=== PATIENT | female | born 1960 | race African-American/Black ===

== ENCOUNTER → 2016-03-18 | Outpatient (CLI) | payer MEDICARE, MEDICAID, OTHER ==
[~2016-03-18] VITALS: Ht 153.7 cm; Wt 128.8 kg
[~2016-03-18] MED LIST: CALCIUM 600MG+D1 TAB PO; CATAPRES 0.1MG0.1 MG PO; CLARITIN 1010 MG/TAB PO; FLEXERIL 1010 MG/TAB PO; FLONASE NASAL S16 GM NS; GLUCOPHAGE1000 MG PO; MULTIPLE VITAMI1 CAP PO; NORVASC 10MG10 MG PO; PRINZIDE 12.5 M1 TA1 PO; PROAIR HFA0.09 MG/AC IH
[2016-03-18 15:08] VITALS: BP 136/81; PULSE 69
[2016-03-18 15:53] VITALS: BP 136/81; PULSE 69
== END ==
LOC: LIGHT 13:58
DX: Z98.84 Bariatric surgery status (principal); E66.01 Morbid (severe) obesity due to excess calories; Z68.43 Body mass index [BMI] 50.0-59.9, adult; I10 Essential (primary) hypertension

== ENCOUNTER → 2016-08-29 | Outpatient (CLI) | payer MEDICARE, MEDICAID | LOC: COL.RAD 12:07 | DX: K57.30 Diverticulosis of large intestine without perforation or abscess without bleeding (principal); Z98.890 Other specified postprocedural states | CPT/HCPCS: Q9967 ==

== ENCOUNTER → 2017-02-04 | Outpatient (CLI) | payer MEDICARE, MEDICAID | LOC: MC.RAD 01-10 11:20 | DX: Z12.31 Encounter for screening mammogram for malignant neoplasm of breast (principal) ==

== ENCOUNTER → 2017-11-24 | Outpatient (CLI) | payer MEDICARE, MEDICAID | LOC: COL.RAD 11:48 | DX: E04.1 Nontoxic single thyroid nodule (principal) ==

== ENCOUNTER → 2017-11-26 | Outpatient (CLI) | payer MEDICARE, MEDICAID | LOC: COL.RAD 13:19 | DX: G43.009 Migraine without aura, not intractable, without status migrainosus (principal) ==

== ENCOUNTER → 2018-05-21 | Outpatient (CLI) | payer MEDICARE, MEDICAID | LOC: MC.RAD 10:40 | DX: Z12.31 Encounter for screening mammogram for malignant neoplasm of breast (principal) ==

== ENCOUNTER → 2019-07-06 | Outpatient (CLI) | payer MEDICARE, MEDICAID | LOC: MC.RAD 12:50 | DX: Z12.31 Encounter for screening mammogram for malignant neoplasm of breast (principal) ==

== ENCOUNTER → 2021-12-26 | Outpatient (CLI) | payer MEDICARE, MEDICAID | LOC: COL.RAD 12-21 09:00 | DX: E04.2 Nontoxic multinodular goiter (principal) ==